=== PATIENT | female | born 1995 | race Caucasian/White ===

== ENCOUNTER 2019-06-17 16:45 | Outpatient (CLI) | payer BC, MEDICAID ==
[2019-06-19] MEDS ORDERED: MULT-933 PO (14:54)
[2019-06-19] MEDS ORDERED: collagen PO (14:54)
== END 2019-06-17 23:59 | disposition home or self-care (01) ==
LOC: LAB 16:45
PROVIDERS: ATTEND Obstetrics & Gynecology Obstetrics
DX: O36.80X9 Pregnancy with inconclusive fetal viability, other fetus (principal); Z3A.00 Weeks of gestation of pregnancy not specified
CPT/HCPCS: 36415; 84702

== ENCOUNTER 2019-06-18 15:14 | Outpatient (CLI) | payer BC, MEDICAID ==
[2019-06-19] MEDS ORDERED: MULT-933 PO (14:54)
[2019-06-19] MEDS ORDERED: collagen PO (14:54)
== END 2019-06-18 23:59 | disposition home or self-care (01) ==
LOC: LAB 15:14
PROVIDERS: ATTEND Obstetrics & Gynecology Obstetrics
DX: O36.80X9 Pregnancy with inconclusive fetal viability, other fetus (principal); Z3A.00 Weeks of gestation of pregnancy not specified
CPT/HCPCS: 36415; 84702

== ENCOUNTER 2019-06-20 09:15 | Day surgery (SDC) | payer BC, MEDICAID ==
[2019-06-19 14:33] LABS: BASOPHILS % (AUTO) 0.7 % (0-1); EOSINOPHILS # (AUTO) 0.1 X10'3 (0-0.9); EOSINOPHILS % (AUTO) 1.2 % (0-6); LYMPHOCYTES # (AUTO) 1.3 X10'3 (1.1-4.8); LYMPHOCYTES % (AUTO) 24.9 % (21-51); MEAN CORPUSCULAR VOLUME 91.1 FL (78-98); MEAN PLATELET VOLUME 9.8 FL (7.4-10.4); MONOCYTES # (AUTO) 0.3 X10'3 (0-0.9); MONOCYTES % (AUTO) 5.2 % (2-12); NEUTROPHILS # (AUTO) 3.5 X10'3 (1.8-7.7); PRE OP HEMOGLOBIN 13.9 g/dL (12.0-16.0); PRE OP PLATELET COUNT 152 X10'3 (140-440); RED CELL DISTRIBUTION WIDTH 12.9 % (11.5-14.5)
[2019-06-19 14:39] LABS: CLARITY,URINE SLIGHTLY CLOUDY (Clear); COLOR,URINE YELLOW (Yellow); GLUCOSE, URINE NEGATIVE (Neg); KETONES,URINE NEGATIVE (Neg); LEUKOCYTE ESTERASE ,URINE NEGATIVE (Neg); NITRITES, URINE NEGATIVE (Neg); OCCULT BLOOD,URINE NEGATIVE (Neg); PROTEIN,URINE NEGATIVE (Neg); UROBILINOGEN,URINE 0.2 E.U/dL (0.2-1.0)
[2019-06-19 14:41] LABS: UA COLLECTION TYPE CLN CATCH MIDSTREAM
[2019-06-19 14:47] LABS: ALBUMIN 4.4 G/DL (3.4-5.0); ALBUMIN/GLOBULIN RATIO 1.5 (1.1-1.5); ALKALINE PHOSPHATASE 84 IU/L (46-116); BLOOD UREA NITROGEN 9 MG/DL (7-18); CALCIUM 9.1 MG/DL (8.5-10.1); CHLORIDE 105 MMOL/L (99-107); PRE OP ALT 15 U/L (30-65); PRE OP ANION GAP 10 (8-16); PRE OP AST 16 U/L (10-37); PRE OP BILIRUB, TOTAL 0.4 MG/DL (0.0-1.0); PRE OP GLUCOSE 80 MG/DL (70-104); PRE OP POTASSIUM 3.9 MMOL/L (3.4-5.1); PRE OP SODIUM 140 MMOL/L (135-145); TOTAL CARBON DIOXIDE 24.9 MMOL/L (24-32); TOTAL PROTEIN 7.4 G/DL (6.4-8.2); eGFR > 90 ML/MIN
[2019-06-19 14:54] LABS: SQUAMOUS EPITHELIAL CELL,UR FEW /LPF (FEW)
[2019-06-19 14:59] LABS: BACTERIA,URINE NONE SEEN /HPF (Neg); RBC,URINE 0-2 /HPF (0-2); WBC,URINE 0-4 /HPF (0-4)
[~2019-06-20] VITALS: Ht 167.6 cm; Wt 64.0 kg
[2019-06-20] VITALS (10 sets, daily range): BP systolic 102–119; BP diastolic 55–66
[~2019-06-20 09:15] MED LIST: MULT-933 PO; ceFOXitin 2 GM ADDvantage bag 100 ML IV ONE; ceFOXitin sod/dextrose 2g/50ml 50 ML IV ONE; collagen PO; famotidine 20mg tablet PO ONE; ringers solution, lacted 1,000 ML IV SCH
[2019-06-20] MEDS ORDERED: ringers solution, lacted 1,000 ML IV SCH (10:07)
[2019-06-20] MEDS ORDERED: proCHLORperazine 10 MG/2 ml inj IV PRN (10:10)
[2019-06-20] MEDS ORDERED: morphine 4 MG/ML inj SYRINge IV PRN ×2 (10:10)
[2019-06-20] MEDS ORDERED: ondansetron/PF 4mg/2ml inj IV PRN (10:10)
[2019-06-20] MEDS ORDERED: meperidine/PF 25mg/ml syringe IV PRN ×3 (10:10)
[2019-06-20] MEDS ORDERED: fentaNYL/PF 50MCG/1 ML 2ML syringe ONE (10:16)
[2019-06-20] MEDS ORDERED: midazolam 2 mg/2 ml injection ONE (10:17)
[2019-06-20] MEDS ORDERED: BUPIVAcaine/PF 2.5 mg/ml (0.25%) 30ml vial ONE ×2 (10:24)
[2019-06-20] MEDS ORDERED: methylergonovine maleate 0.2mg/ml amp ONE (10:27)
[2019-06-20] MEDS ORDERED: ondansetron/PF 4mg/2ml inj ONE (10:27)
[2019-06-20] MEDS ORDERED: sevoflurane 250ml liquid IH ONE (10:27)
[2019-06-20] MEDS ORDERED: LIDOcaine 1%/PF 5ML 10 MG/ML VIAL ONE (10:27)
[2019-06-20] MEDS ORDERED: neostigmine methylsulfate 1 MG/ML 10ml vial ONE (10:27)
[2019-06-20] MEDS ORDERED: propofol inj 20 ML IV ONE (10:33)
[2019-06-20] MEDS ORDERED: epiNEPHrine 1 mg/ml inj ONE (10:59)
[2019-06-20] MEDS ORDERED: dexamethasone sod phosphate 4mg/ml inj. ONE (11:27)
[2019-06-20] MEDS ORDERED: ketorolac trometh. 30mg/ml inj. ONE (11:27)
[2019-06-20] MEDS ORDERED: rocuronium 10mg/ml inj IV ONE (11:27)
[2019-06-20] MEDS ORDERED: glycopyrrolate 0.2mg/ml inj ONE (11:33)
--- NOTE | 2019-06-20 11:36 | NUR ---
Received from OR via [facility], accompanied by Anesthesiologist DR CANNON and report given by Anesthesiologist. PT DROWSY, NO S/S OF DISTRESS/DISCOMFORT. ABDOMEN W/3 LAP SITES W/DERMABOND CDI, DONNY PAD IN PLACE. Addendum: 06/20/19 at 1153 by Ofe Goldman RN Amended: Links added.
[2019-06-20] MEDS ORDERED: acetaminophen 1,000mg/100ml IV 100 ML IV ONE (12:00)
--- NOTE | 2019-06-20 13:06 | NUR ---
D/C INSTRUCTIONS GIVEN AND GONE OVER W/PT AND PTS BOYFRIEND WHOM VERBALIZE UNDERSTANDING, PT D/CD TO HOME VIA W/C TO PRIVATE VEHICLE W/O INCIDENT. Addendum: 06/20/19 at 1322 by Ofe Goldman RN Amended: Links added.
== END 2019-06-20 13:06 | disposition home or self-care (01) ==
LOC: PAS 09:15
PROVIDERS: ATTEND Obstetrics & Gynecology Obstetrics
DX: O00.90 Unspecified ectopic pregnancy without intrauterine pregnancy (principal); Z30.432 Encounter for removal of intrauterine contraceptive device; F31.9 Bipolar disorder, unspecified; Z79.899 Other long term (current) drug therapy
CPT/HCPCS: 36415; 58301; 59151; 80053; 81001; 82948; 85025; 86885; 86900; 86901; J0131; J0171; J0694; J1100; J1885; J2210; J2250; J2405; J2704; J2710; J3010; J3490; J7120; A4618; A6258; A7000